=== PATIENT | male | born 1995 | race Caucasian/White ===

== ENCOUNTER → 2018-05-19 | Outpatient (CLI) | payer BC, OTHER | LOC: M WUC 10:04 | DX: M25.532 Pain in left wrist (principal) | CPT/HCPCS: 73110 ==

== ENCOUNTER → 2022-08-13 | Outpatient (CLI) | payer BC, OTHER ==
[2022-08-13 17:05] LABS: BILIRUBIN,DIRECT 0.2 MG/DL (<0.4)
[2022-08-13 17:06] LABS: ALBUMIN 4.3 G/DL (3.2-5.2); BILIRUBIN,TOTAL 0.4 MG/DL (0.3-1.2)
== END ==
LOC: M WUC 13:47
PROVIDERS: ATTEND Podiatrist
DX: Z51.81 Encounter for therapeutic drug level monitoring (principal)